=== PATIENT | female | born 1970 | race Caucasian/White ===

== ENCOUNTER 2022-05-14 07:22 | Day surgery (SDC) | payer OTHER ==
[~2022-05-14] VITALS: Ht 154.9 cm; Wt 67.1 kg
[2022-05-14] MEDS ORDERED: diphenhydrAMINE 50 MG/ML VIAL ONE (08:14)
[2022-05-14] MEDS ORDERED: fentaNYL citrate 0.05 MG/ML VIAL ONE (08:14)
[2022-05-14] MEDS ORDERED: MIDAZOLAM 5 MG/5 ML VIAL ONE (08:14)
[2022-05-14] MEDS ORDERED: LIDOCAINE 2% 100 MG/5 ML UJET TP ONE (08:14)
[2022-05-14] MEDS ORDERED: MIDAZOLAM 5 MG/5 ML VIAL IV ONE ×2 (09:40→14:00)
[2022-05-14] MEDS ORDERED: fentaNYL citrate 0.05 MG/ML VIAL IVP ONE ×2 (09:40→14:00)
== END 2022-05-14 10:35 | disposition home or self-care (01) ==
LOC: MDS 07:22 → MMU 07:23 → MDS 10:35
PROVIDERS: ATTEND Internal Medicine Gastroenterology
DX: Z12.11 Encounter for screening for malignant neoplasm of colon (principal); E78.00 Pure hypercholesterolemia, unspecified; Z20.822 Contact with and (suspected) exposure to COVID-19; Z79.899 Other long term (current) drug therapy; Z98.890 Other specified postprocedural states
CPT/HCPCS: 45378; 87426; J2250; J3010; J1200